=== PATIENT | female | born 2000 | race Caucasian/White ===

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

== ENCOUNTER 2019-02-20 14:47 | Emergency (ER) | payer MEDICAID ==
[2019-02-20] MEDS ORDERED: METHYLPREDNISOLONE PF 125MG/VIAL IVP ONE (15:02)
[2019-02-20] MEDS ORDERED: 0.9 % SODIUM CHLORIDE 1,000 ML BAG IV ONE (15:05)
--- NOTE | 2019-02-20 15:10 | Emergency Department Record ---
History of Present Illness - General Chief Complaint: Shortness of breath Stated Complaint: DIF BREATHER Time Seen by Provider: 02/20/19 14:55 Source: Patient Mode of Arrival: Ambulatory Limitations: No limitations - History of Present Illness Initial Comments: The patient is here due to developing an itchy rash to her hands, neck and chest about an hour ago. It occurred after she got to work at [employer]. She denies taking any new medicines, foods, or coming in contact with anything new. She did take 50 mg of Benadryl and is feeling better now. She has no difficulty swallowing, voice changes or difficulty breathing presently but does feel mildly anxious. She has no hx of allergic rxn's. Onset/Timin -: Hour(s) Associated Symptoms: Denies other symptoms Treatment Prior to Arrival Comment:: benadryl about 30 minutes ago - Related Data Previous Rx's Medication Instructions Recorded Prednisone [Prednisone 20Mg] 40 mg PO DAILY #8 tab 02/20/19 Allergies Allergy/AdvReac Type Severity Reaction Status Date / Time red dye Allergy Intermediate VOMITING Verified 02/20/19 14:55 levofloxacin [From Levaquin] Allergy rash Verified 02/20/19 14:55 Travel Screening - Travel/Exposure Within Last 30 Days Have you traveled within the last 30 days?: No Review of Systems Constitutional: Denies: Chills, Fever Eyes: Denies: Eye discharge ENT: Denies: Congestion Respiratory: Denies: Cough, Dyspnea Past Medical History - SOCIAL HISTORY Smoking Status: Former smoker Alcohol Use: None Drug Use: None - RESPIRATORY Hx Respiratory Disorders: No - CARDIOVASCULAR Hx Cardio Disorders: No - NEURO Hx Neuro Disorders: No - GI Hx GI Disorders: Yes Hx Abdominal Pain: Yes (related to ovarian cyst) - Hx Genitourinary Disorders: No - ENDOCRINE Hx Endocrine Disorders: No - MUSCULOSKELETAL Hx Musculoskeletal Disorders: No - PSYCH Hx Psych Problems: Yes Hx Anxiety: Yes Hx Depression: Yes Hx Suicide Attempt: Yes (hx overdosing and self harming) Comment:: cuts herself - HEMATOLOGY/ONCOLOGY Hx Hematology/Oncology Disorders: No Family Medical History Any Significant Family History?: Yes Hx Depression: Father, Mother, Grandparents *Depression Comment: father also PTSD Physical Exam - General General Appearance: Alert, Oriented x3, Cooperative, No acute distress - Head Head exam: Atraumatic, Normocephalic, Normal inspection - Eye Eye exam: Normal appearance, PERRL, EOMI - ENT Throat exam: Normal inspection. negative: Tonsillar erythema, Tonsillar exudate - Neck Neck exam: Normal inspection, Full ROM. negative: Tenderness - Respiratory Respiratory exam: Normal lung sounds bilaterally. negative: Respiratory distress - Cardiovascular Cardiovascular Exam: Regular rate, Normal rhythm, Normal heart sounds - GI/Abdominal GI/Abdominal exam: Soft, Normal bowel sounds. negative: Tenderness - Extremities Extremities exam: Normal inspection, Full ROM, Normal capillary refill. negative: Tenderness - Neurological Neurological exam: Alert, Normal gait. negative: Abnormal gait, Motor sensory deficit - Skin Skin exam: Rash (There are scattered faint macular erythematous lesions that maverick on the hand. They are improving per the patient.) Course Vital Signs 02/20/19 14:52 Temperature 98.2 F Pulse Rate 114 H Respiratory 20 Rate Blood Pressure 132/79 Pulse Ox 100 - Reevaluation(s) Reevaluation #1: The patient is doing a lot better at this time. She denies any SOB, JULIO CÉSAR, or any trouble swallowing or breathing. Her rash is also much better. She is ready for home. 02/20/19 15:58 Medical Decision Making - Data Complexity MDM Data: Labs Ordered and/or Reviewed - Lab Data Result diagrams: 02/20/19 15:00 02/20/19 15:00 Disposition Disposition: Discharge Clinical Impression: Allergic reaction Qualifiers: Encounter type: initial encounter Qualified Code(s): T78.40XA - Allergy, unspecified, initial encounter Disposition: Home, Self-Care Condition: (2) Stable Instructions: Urticaria (ED) Additional Instructions: Please continue the Benadryl and start the Prednisone tomorrow. Please see your doctor later this week for recheck and return to the ER for any worsening symptoms. Prescriptions: Prednisone [Prednisone 20Mg] 40 mg PO DAILY #8 tab Forms: Patient Portal Access Time of Disposition: 16:03 Quality - Quality Measures Quality Measures: N/A - Blood Pressure Screening View Details: Yes Does Patient Have Any of the Following: No Blood Pressure Classification: Pre-Hypertensive BP Reading Systolic Measurement: 132 Diastolic Measurement: 79 Screening for High Blood Pressure: < Pre-Hypertensive BP, F/U Documented > [G8950] Pre-Hypertensive Follow-up Interventions: Referral to alternative/primary care provider.
[2019-02-20 15:14] LABS: ABSOLUTE NEUTROPHIL COUNT 6.77; BASO % 0.2 % (0-6); EOS % 0.4 % (0-6); GRAN % 71.4 % (47-80); HEMATOCRIT 40.9 % (35.0-47.0); HEMOGLOBIN 14.1 gm/dl (11.6-16.0); MEAN CELL VOLUME 84.5 fl (81-97); MEAN CORPUSCULAR HEMOGLOBIN 29.1 pg (27-33); MEAN CORPUSCULAR HGB CONC 34.5 g/dl (32-36); MEAN PLATELET VOLUME 11.5 fl (7.4-10.4); PLATELET COUNT 231 K/uL (130-400); RED BLOOD COUNT 4.84 M/uL (3.80-5.40); RED CELL DISTRIBUTION WIDTH 13.6 % (11.5-14.5); WHITE BLOOD COUNT W/O DIFF 9.5 K/uL (4.2-12.2)
[2019-02-20 15:31] LABS: BLOOD UREA NITROGEN 15 mg/dL (6-20); CREATININE 0.5 mg/dL (0.5-0.9); EST GLOMERULAR FILTRATION RATE > 60 mL/min
[2019-02-20 15:32] LABS: TOTAL PROTEIN 7.5 g/dL (6.6-8.7)
[2019-02-20 15:34] LABS: GLUCOSE,RANDOM 94 mg/dL (74-109)
[2019-02-20 15:36] LABS: ALB/GLOB RATIO 1.9 (1.1-1.8); ALBUMIN 4.9 g/dL (4.0-5.0); ALT/SGPT 22 U/L (<33); AST/SGOT 19 U/L (10.0-35.0)
[2019-02-20 15:37] LABS: ALKALINE PHOSPHATASE 73 U/L (35-104)
== END 2019-02-20 16:10 | disposition home or self-care (01) ==
LOC: ER 14:47
DX: L50.0 Allergic urticaria (principal); R06.02 Shortness of breath; Z87.891 Personal history of nicotine dependence
CPT/HCPCS: 80053; 85025; 96374; 99284; J2930; J7030